=== PATIENT | male | born 1950 | race Caucasian/White ===

== ENCOUNTER → 2021-01-10 12:33 | Outpatient (CLI) | payer MEDICARE, OTHER, SELFPAY ==
[2021-01-10 11:30] VITALS: BMI 40.3
--- NOTE | 2021-01-10 12:38 | RAD_ITS ---
STUDY: X-RAY CHEST REASON FOR EXAM: Male, 70 years old. Chest pain/pressure , shortness of breath with exertion for one year TECHNIQUE: PA and lateral views of the chest. COMPARISON: None. FINDINGS: The lungs are clear and expanded. There is no demonstrated pleural abnormality. Normal size heart. Normal mediastinum and radha. Normal visualized pulmonary arteries. Normal visualized aortic arch and descending thoracic aorta. Normal visualized thoracic spine. Normal visualized ribs, clavicles, and shoulders. There is no demonstrated abnormality of the visualized soft tissue structures of the upper abdomen. RAD/Chest PA and Lateral IMPRESSION: Normal x-ray examination of the chest. Electronically Signed: Dank Kaiser MD at 12:58 EDT , Service support ,
[2021-01-10 13:38] LABS: Hematocrit 46.8 % (40-54); Mean Corp Hgb Conc 34.2 g/dL (32-36); Mean Corpuscular Volume 87.8 fL (80-94); Mean Platelet Vol. 8.8 fl (6.2-12.0); Platelet Count 320 K/mm3 (150-450); RBC Distribution Width CV 12.5 % (11.6-14.6); Red Blood Count 5.33 M/mm3 (4.6-6.2); White Blood Count 8.1 K/mm3 (4.4-11.0)
[2021-01-10 14:03] LABS: ALB/GLOB Ratio 1.1 RATIO (0.9-2.4); AST(SGOT) 40 U/L (15-37); Alanine Aminotransfer ALT/SGPT 38 U/L (16-61); Albumin, Serum 4.2 g/dL (3.2-5.0); Alkaline Phosphatase 104 U/L (45-117); Anion Gap 6 (5-15); BUN 18 mg/dL (7-18); BUN/Creat Ratio 18.4 RATIO (10-20); Calcium,Total 9.6 mg/dL (8.5-10.1); Chloride 103 mmol/L (98-107); Creatinine, Serum 0.98 mg/dL (0.70-1.30); EST Glomerular Filtration Rate 80 mL/min (>60); Est Glom Filt Rate - Afr Amer 97 mL/min (>60); Globulin 3.9 g/dL (2.2-4.2); Glucose 115 mg/dL (74-106); Potassium 4.2 mmol/L (3.5-5.1); Protein, Total 8.1 g/dL (6.4-8.2); Sodium Level 137 mmol/L (136-145); Thyroid Stim Hormone (TSH) 5.71 uIU/mL (0.358-3.74)
== END ==
LOC: RAD 12:36 → LAB 12:47
PROVIDERS: PCP Internal Medicine; Referring Provider Internal Medicine Cardiovascular Disease; Visit Provider Internal Medicine Cardiovascular Disease
DX: I10 Essential (primary) hypertension (principal); E78.5 Hyperlipidemia, unspecified; R06.00 Dyspnea, unspecified
CPT/HCPCS: 36415; 71046; 80053; 84443; 85027

== ENCOUNTER → 2021-01-22 07:04 | Outpatient (CLI) | payer MEDICARE, OTHER, SELFPAY ==
[2021-01-10 11:30] VITALS: BMI 40.3
--- NOTE | 2021-01-22 08:24 | STRESSREP ---
Stress Test Report Date: 01-22-2021 Procedure: Pharmacologic stress nuclear imaging study Indications: Shortness of breath/dyspnea on exertion; suboptimal exercise tolerance test/imaging study Consent: Per the patient Procedure: The patient underwent pharmacologic (Regadenoson 0.4mg ) evaluation with a peak heart rate of 93 beats per minute (62%predicted maximal heart rate) and a peak blood pressure of 140/78 mmHg. The baseline ECG demonstrated normal sinus rhythm; anteroseptal OK of indeterminate age cannot be excluded; nonspecific T wave abnormality. The peak pharmacologic ECG demonstrated no obvious ECG changes. There were no cardiac dysrhythmias pretest, during pharmacologic infusion, or recovery. There was no complaint of chest discomfort during pharmacologic infusion or recovery. The examination was discontinued secondary to completion of protocol. Impression: 1. Pharmacologic (Regadenoson) evaluation 2. Peak pharmacologic ECG with no obvious ECG changes. 3. There were no cardiac dysrhythmias pretest, during pharmacologic infusion, or recovery. 4. Nuclear images pending Myocardial perfusion imaging study: Technique: The patient was injected with 14.0 millicuries of technetium 99m Cardiolite and subsequently rest SPECT Cardiolite nuclear imaging was obtained in the horizontal long, vertical long, and short axis views. The patient underwent pharmacologic (Regadenoson) evaluation with a peak heart rate of 93 beats per minute (62% percent predicted maximal heart rate) and a peak blood pressure of 140/78 mmHg. The patient was injected with 45.0 millicuries of technetium 99m Cardiolite and subsequently stress SPECT Cardiolite nuclear imaging was obtained in the horizontal long, vertical long, and short axis views. A gated Cardiolite study at peak stress was obtained. Interpretation: Rest and stress SPECT Cardiolite nuclear imaging status post realignment, normalization, and attenuation correction demonstrate status post stress the appearance of diminished tracer uptake in portions of the basal inferior septal and basal inferior segments extending towards the mid inferior septal/inferior segments. There is end systolic thickening and brightening. The gated Cardiolite study demonstrates myocardial thickening and inward wall motion. The reported LVEF is 84%. Impression: 1. Rest and stress SPECT current nuclear imaging demonstrate myocardial perfusion changes concerning for an area of stress-induced myocardial ischemia in portions of the basal towards mid inferoseptal/inferior segments, however, an element of soft tissue attenuation/artifact cannot necessarily be excluded. 2. The gated Cardiolite study reports an LVEF of 84%. This note was generated with [employer]ube[employer] software. It may contain incorrect words, spelling, and punctuation that were not noted in checking the note before signing.
== END ==
PROVIDERS: PCP Internal Medicine; Referring Provider Internal Medicine Cardiovascular Disease; Visit Provider Internal Medicine Cardiovascular Disease
DX: R06.00 Dyspnea, unspecified (principal); E78.5 Hyperlipidemia, unspecified; I10 Essential (primary) hypertension
CPT/HCPCS: 78452; 93017; A9500; A4216; J2785

== ENCOUNTER 2021-02-19 08:35 | Day surgery (SDC) | payer MEDICARE, OTHER, SELFPAY ==
[2021-01-10 11:30] VITALS: BMI 40.3
[2021-02-12 11:10] VITALS: BMI 40.3
[2021-02-12 12:24] LABS: Hematocrit 46.1 % (40-54); Hemoglobin 15.8 g/dL (13.0-16.5); Mean Corp Hgb Conc 34.3 g/dL (32-36); Mean Corpuscular Volume 87.5 fL (80-94); Mean Platelet Vol. 8.7 fl (6.2-12.0); Platelet Count 285 K/mm3 (150-450); RBC Distribution Width CV 12.2 % (11.6-14.6); RBC Distribution Width SD 38.8 fl (35.1-43.9); Red Blood Count 5.27 M/mm3 (4.6-6.2); White Blood Count 7.5 K/mm3 (4.4-11.0)
[2021-02-12 12:35] LABS: Prothrombin Time (Protime)PT. 12.6 SECONDS (11.7-14.9)
[2021-02-12 13:13] LABS: Anion Gap 8 (5-15); BUN 16 mg/dL (7-18); BUN/Creat Ratio 16.8 RATIO (10-20); Calcium,Total 9.4 mg/dL (8.5-10.1); Chloride 101 mmol/L (98-107); Creatinine, Serum 0.96 mg/dL (0.70-1.30); EST Glomerular Filtration Rate 83 mL/min (>60); Est Glom Filt Rate - Afr Amer 100 mL/min (>60); Glucose 138 mg/dL (74-106); Potassium 3.8 mmol/L (3.5-5.1); Sodium Level 136 mmol/L (136-145)
[2021-02-18 10:17] VITALS: BMI 40.3
--- NOTE | 2021-02-18 17:47 | PCM.HP.BLA ---
History and Physical Date of Admission: 02/19/21 [facility] [id number] [place], [place] [id number] OFFICE VISITDate of Service: 01/10/21 MR#:[id number]:[id number]: ANISA HENSLEYRep #:[id number]:[id number] Provider:Dr. Tomás Frias MDAge/Sex: 70/M [facility] HPI History of Present Illness Details: This is a 70-year-old white male who presents for outpatient cardiovascular consultation regarding shortness of breath/dyspnea on exertion and a suboptimal stress echocardiogram. The patient notes that for some time now he has been experiencing increased shortness of breath/dyspnea on exertion. He does not experience chest discomfort other than that with the associated with the sensation of dyspnea. He denies orthopnea or PND. He denies near syncope or syncope. He had a [facility] ECG on 10-31-2020. He was sinus rhythm with the appearance of nonspecific ST and T wave abnormality according to their report. He had a repeat ECG today. He was noted to have sinus rhythm with a leftward axis with poor R wave progression with an anterior WA of indeterminate age cannot be excluded and nonspecific T wave abnormality. He did undergo [facility] evaluation in 2013 with a stress echocardiogram which was considered negative at that time. It appears he had a reattempt at a stress echocardiogram on 11-21-2020 through the [facility] system. This was considered suboptimal based upon his heart rate response only reaching 76% predicted maximal heart rate response. He states his legs were unable to keep going on the treadmill. Based upon the report it did not appear he had any obvious changes at the heart rate achieved. He is on medical therapy for hyperlipidemia. He states he takes his lipid-lowering medication 3 times per week. He is also on medical therapy for hypertension. Intake Vital Signs 01/10/21 11:30 Height 5 ft 8 in Weight: 265 lb 6 oz BMI 40.3 BP 132/80 H Blood Pressure Location Lt brachial Position Sitting Respiration 16 Pulse 68 Pulse Source Auscultation Intake Visit Reasons: GRESHAM/Ref. 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 Accompanied by: Self Allergies No Known Allergies Allergy (Unverified 01/10/21 11:31) Medications ascorbic acid (vitamin C) 500 mg tablet 500 mg PO DAILY 01/08/21 [History Confirmed 01/10/21] flaxseed oil 1,000 mg capsule 1,000 mg PO DAILY 01/08/21 [History Confirmed 01/10/21] lisinopril 10 mg-hydrochlorothiazide 12.5 mg tablet 1 tab PO DAILY #1 tab 01/08/21 [Rx Confirmed 01/10/21] rosuvastatin 5 mg tablet 5 mg PO .COMPLEX #1 tab 01/08/21 [Rx Confirmed 01/10/21] aspirin 81 mg tablet,delayed release 81 mg PO DAILY #1 tab 01/10/21 [Rx Confirmed 01/10/21] calcium carbonate-vitamin D3 600 mg calcium-200 unit capsule 1 cap PO DAILY cap 01/10/21 [History Confirmed 01/10/21] cholecalciferol (vitamin D3) 25 mcg (1,000 unit) chewable tablet 25 mcg PO DAILY PRN 01/10/21 [History Confirmed 01/10/21] cyanocobalamin (vitamin B-12) 500 mcg sublingual tablet 500 mcg SUBLINGUAL DAILY PRN 01/10/21 [History Confirmed 01/10/21] levothyroxine 100 mcg tablet 100 mcg PO DAILY 01/10/21 [History Confirmed 01/10/21] [facility] Medical History (Updated 01/10/21 @ 12:[address] Tomás Frias MD) BPH (benign prostatic hyperplasia) Controlled type 2 diabetes mellitus Dyspnea on exertion Essential hypertension HLD (hyperlipidemia) Hypothyroidism Surgical History History of hemorrhoidectomy History of mandibular surgery Family History Mother Cancer Cervical Diabetes Father CAD (coronary artery disease) History of coronary artery bypass surgery Social History Smoking Status: Never smoker alcohol intake: never substance use type: does not use caffeine: Yes Type: tea Number of servings: 4 ROS Const Const: Positive for fatigue (decreased stamina last few years); Negative for weakness, frequent falls, excessive sweating, weight gain or weight loss Eyes Eyes: Negative for transient loss of vision, blurry vision or change in vision ENT ENT: Negative for dizziness or balance problems Cardio Chest Pain: No Palpitations: No Edema: None Muscle aches with walking: None Resp Respiratory: Positive for SOB with activity (progressively increased over the years); Negative for SOB at rest GI GI: Negative vomiting or vomiting blood/hematemesis : Negative for hematuria Musc Musc: Positive for joint pain (bilat knees); Negative for muscle aches/ myalgia, muscle weakness or balance problems Skin Skin: Negative non-healing lesions or rash Neuro Neuro: Positive for lightheadedness (occasional, random in the am); Negative for dizziness, orthostatic symptoms, frequent falls, weakness or blurry vision Lauro Hematologic/Lymphatic: Negative for easy bleeding Endo Endo: Positive for fatigue (decreased stamina last few years); Negative for excessive sweating Psych Psych: Negative for anxiety or depression Allergy Allergy/Immunology: Negative for hives and Negative for rash Cardiology Exam Const Appearance: cooperative, healthy appearing, comfortable, no acute distress, well developed and well groomed Nutritional Appearance: obese Orientation: alert, awake and oriented x3 Head Head: normal to inspection, normocephalic and atraumatic Ears: hearing grossly normal bilaterally Nose: external nose normal Face and Sinus: face symmetric Eyes Eyelids: eyelids normal Conjunctivae: conjunctivae normal Pupils: PERRL EOM: EOM intact bilaterally Neck Neck: normal visual inspection and full ROM Carotids: normal carotid upstroke Chest Chest inspection: normal inspection of the chest, symmetric chest movement and normal respiratory effort Auscultation: Bilateral: Clear to Auscultation Cardio Palpation: normal PMI Rate: regular rate Rhythm: regular rhythm Heart sounds: S1 normal and S2 normal GI GI: normal to inspection, soft, bowel sounds present and obese Neuro General: patient alert, patient awake, patient oriented x3 and moves all extremities Skin Skin: no rashes or lesions noted Extremities Pulses: Normal: Right Radial Pulse and Left Radial Pulse Lower Extremity Edema: None: Bilateral Psych Psychological: normal affect Assessment and Plan Assessment and Plan (1) Dyspnea on exertion: Status: Acute Orders: Orders: 12 Lead EKG performed by [facility] Today Comprehensive Metabolic Profil Today Thyroid Stim Hormone (TSH) Today CBC-Complete Blood Cnt No Diff Today Nuclear Stress Test - Chemical Today Chest PA and Lateral Today Plan - Dr. Tomás Frias MD: The patient does have shortness of breath and dyspnea on exertion. It has progressed. He has undergone noninvasive studies thus far as noted. From a cardiac standpoint he was asked to have laboratory studies to evaluate for any obvious underlying abnormalities that would contribute to this. He was also asked to have a follow-up chest x-ray to evaluate for any obvious pulmonary abnormalities would contribute to this. Also from a cardiovascular standpoint he was given the option of further evaluation for the possibility of CAD contributing to this with a noninvasive approach with a pharmacologic stress imaging study versus an invasive approach with a diagnostic cardiac catheterization. Status post review of his course the consensus was to proceed with a noninvasive evaluation initially. Depending upon the findings he may need further cardiac or noncardiac evaluation as well. From a noncardiac standpoint this could include underlying pulmonary function studies. In the interim he will initiate medical therapy with aspirin 81 mg p.o. daily. (2) Essential hypertension: Status: Acute Orders: Orders: 12 Lead EKG performed by [facility]MS Today Comprehensive Metabolic Profil Today Thyroid Stim Hormone (TSH) Today CBC-Complete Blood Cnt No Diff Today Nuclear Stress Test - Chemical Today Chest PA and Lateral Today Plan - Dr. Tomás Frias MD: He will continue his antihypertensive therapy. (3) HLD (hyperlipidemia): Status: Acute Orders: Orders: Comprehensive Metabolic Profil Today Thyroid Stim Hormone (TSH) Today CBC-Complete Blood Cnt No Diff Today Nuclear Stress Test - Chemical Today Chest PA and Lateral Today Plan - Dr. Tomás Frias MD: He will continue his lipid-lowering therapy. He is being followed by [facility] physicians for this. Plan Details Other Medications: New: aspirin 81 mg PO DAILY 1 TAB 0RF Additional Comments: Thank you for allowing me to participate in the care of your patient. Please don't hesitate to call if any issues arise. This note was generated using a voice recognition system and there may be incorrect words, spelling or punctuation that were not noted when reviewing the office note prior to saving. Follow Up: 3 Months (PFM) COVID (Procedure Consent) Procedure Criteria Procedure Criteria: Yes Elective The surgeon/proceduralist and patient have discussed in detail the risk of exposure to and/or potential harm posed by the COVID-19 virus with having a surgery/procedure at this time versus the risk of delaying the surgery/procedure. It is not possible to know either the risk of delaying the surgery or procedure or chance of getting an infection with perfect accuracy, but a joint decision was made between the patient and the surgeon/proceduralist to proceed at this time with the scheduled surgery/procedure as indicated on the consent form. Coding Level of Care Code Off vis,new,level 5 Diagnoses Dyspnea on exertion R06.00 Essential hypertension I10 HLD (hyperlipidemia) E78.5 Coding Level of Care Code Off vis,new,level 5 Diagnoses Dyspnea on exertion R06.00 Essential hypertension I10 HLD (hyperlipidemia) E78.5 Supplemental Info Supplemental Information Labs: No Data to Display Diagnostics: Electrocardiogram Pulmonary: No Data to Display 01/10/21 1239<Electronically signed by Tomás Frias MD>Date Tomás Frias MD Cosigner Signature:Date (if applicable) CC: Dr. Derick Vallejo MD ~ Addendum: Stress Test Report Date: 01-22-2021 Procedure: Pharmacologic stress nuclear imaging study Indications: Shortness of breath/dyspnea on exertion; suboptimal exercise tolerance test/imaging study Consent: Per the patient Procedure: The patient underwent pharmacologic (Regadenoson 0.4mg ) evaluation with a peak heart rate of 93 beats per minute (62%predicted maximal heart rate) and a peak blood pressure of 140/78 mmHg. The baseline ECG demonstrated normal sinus rhythm; anteroseptal WA of indeterminate age cannot be excluded; nonspecific T wave abnormality. The peak pharmacologic ECG demonstrated no obvious ECG changes. There were no cardiac dysrhythmias pretest, during pharmacologic infusion, or recovery. There was no complaint of chest discomfort during pharmacologic infusion or recovery. The examination was discontinued secondary to completion of protocol. Impression: 1. Pharmacologic (Regadenoson) evaluation 2. Peak pharmacologic ECG with no obvious ECG changes. 3. There were no cardiac dysrhythmias pretest, during pharmacologic infusion, or recovery. 4. Nuclear images pending Myocardial perfusion imaging study: Technique: The patient was injected with 14.0 millicuries of technetium 99m Cardiolite and subsequently rest SPECT Cardiolite nuclear imaging was obtained in the horizontal long, vertical long, and short axis views. The patient underwent pharmacologic (Regadenoson) evaluation with a peak heart rate of 93 beats per minute (62% percent predicted maximal heart rate) and a peak blood pressure of 140/78 mmHg. The patient was injected with 45.0 millicuries of technetium 99m Cardiolite and subsequently stress SPECT Cardiolite nuclear imaging was obtained in the horizontal long, vertical long, and short axis views. A gated Cardiolite study at peak stress was obtained. Interpretation: Rest and stress SPECT Cardiolite nuclear imaging status post realignment, normalization, and attenuation correction demonstrate status post stress the appearance of diminished tracer uptake in portions of the basal inferior septal and basal inferior segments extending towards the mid inferior septal/inferior segments. There is end systolic thickening and brightening. The gated Cardiolite study demonstrates myocardial thickening and inward wall motion. The reported LVEF is 84%. Impression: 1. Rest and stress SPECT current nuclear imaging demonstrate myocardial perfusion changes concerning for an area of stress-induced myocardial ischemia in portions of the basal towards mid inferoseptal/inferior segments, however, an element of soft tissue attenuation/artifact cannot necessarily be excluded. 2. The gated Cardiolite study reports an LVEF of 84%. The above was discussed and reviewed with the patient. The recommendation was made to proceed with further evaluation with diagnostic cardiac catheterization. The procedure and risk were discussed with the patient. He was agreeable to this approach. The surgeon/proceduralist and patient have discussed in detail the risk of exposure to and/or potential harm posed by the COVID-19 virus with having a surgery/procedure at this time versus the risk of delaying the surgery/procedure. It is not possible to know either the risk of delaying the surgery or procedure or chance of getting an infection with perfect accuracy, but a joint decision was made between the patient and the surgeon/proceduralist to proceed at this time with the scheduled surgery/procedure as indicated on the consent form. I have re-examined the patient. There are no clinical changes since date of exam.
--- NOTE | 2021-02-19 11:06 | CL.D_ITS ---
Patient Name: ANISA HENSLEY Study Date: 02/19/2021 Performing: Tomás Frias MD Ht: 68.11 inches 173 cm : 1950 Wt: 264.55 lbs 120 kg Age: 70 Gender: male BSA: 2.3 PROCEDURE(S) PERFORMED JN43-CNP/COR/LV CLINICAL PROFILE AND INDICATIONS Indications: Suspected CAD Heart Failure: None Stress/Imaging Date: 01/22/2021tress Test with SPECT MPI: Positive Intermediate Risk Angina Classification Anginal Classification w/in 2 Weeks: Anginal Equivalent Dyspnea CAD Presentations: Other: dyspnea on exertion CONCLUSIONS Elevated Left Ventricular End Diastolic Pressure Normal LV size, wall motion,and systolic function LVEF: by LV gram 60 % [place] Multivessel CAD RECOMMENDATIONS Risk factor modification Medical therapy DESCRIPTION OF PROCEDURE The patient arrived to the procedure lab. The risks and benefits of the procedure as well as a full d escription of our services here and current unavailability of surgical backup were fully explained to the patient and/or their significant other prior to the catheterization. The Timeout was completed, verifying the correct patient and procedure. The patient's procedural site was prepped and draped in the usual fashion. Local anesthetic was given subcutaneously to right radial region with Lidocaine 2% . Using a modified Seldinger technique, arterial access was obtained via the right radial artery, a 6 Fr sheath was inserted. Left Coronary Artery selective angiography was performed in multiple views u sing a 5 Fr. 4.0 [place] catheter. Right Coronary Artery selective angiography was then performed in mu ltiple views using a 5 Fr. 4.0 [place] catheter. Left Ventriculography was performed in BELTRAN projection using a 5 Fr.. LV to AO pullback pressures were then recorded.The arterial sheath was pulled and a TR Band was applied for hemostasis CORONARY ANGIOGRAPHY DOMINANCE: Co- Dominant LEFT HEART ASSESSMENT Left Ventricular Ejection Fraction: by LV Gram 60 % Normal LV wall motion Elevated Left Ventricular End Diastolic Pressure LVEDP: 20 mmHg LEFT MAIN: Angiographically normal LEFT ANTERIOR DESCENDING ARTERY: PROX LAD: Mild luminal irregularities SEPTAL: ostial: 75 % Stenosis CIRCUMFLEX ARTERY: Angiographically normal RIGHT CORONARY ARTERY: PROX RCA: Mild luminal irregularities MID RCA: Mild luminal irregularities AORTIC ROOT: Angiographically normal COMPLICATIONS No Complications PROCEDURE MEDICATIONS Versed 1 mg IV Fentanyl 50 mcg IV Oxygen: 2 L/min via nasal cannula Heparin given IA 02/19/2021 10:19:45 Verapamil 2.5mg, Ntg 100mcgs, 3000 units of Heparin given IA 02/19/2021 10:19:45 SUMMARY OF HEMODYNAMIC DATA Time AIR REST ECG 09:06:37 AO 102/61 (83) SA 10:28:06 LV 118/-7, 17 10:41:13 LV 113/-12, 20 10:41:20 LV 123/-3, 21 10:42:08 LV 122/-12, 21 10:42:16 LVp 123/-16, 14 10:42:21 AOp 117/60 (83) 10:42:26 Signed By Tomás Frias MD On 02/19/2021 11:05:30 Tomás Frias MD
== END 2021-02-19 12:50 | disposition home or self-care (01) ==
LOC: CLSP 08:37
PROVIDERS: PCP Internal Medicine; Visit Provider Internal Medicine Cardiovascular Disease
DX: I25.10 Atherosclerotic heart disease of native coronary artery without angina pectoris (principal); R94.39 Abnormal result of other cardiovascular function study; E78.5 Hyperlipidemia, unspecified; I10 Essential (primary) hypertension; R06.09 Other forms of dyspnea; N40.0 Benign prostatic hyperplasia without lower urinary tract symptoms; E03.9 Hypothyroidism, unspecified; E11.9 Type 2 diabetes mellitus without complications; R06.02 Shortness of breath; Z79.899 Other long term (current) drug therapy; Z79.02 Long term (current) use of antithrombotics/antiplatelets; Z79.82 Long term (current) use of aspirin
CPT/HCPCS: 36415; 80048; 85027; 85610; 85730; 93458; 99152; 99153; J7040; Q9967; C1769; C1894

== ENCOUNTER → 2022-03-25 | Outpatient (CLI) | payer MEDICARE, OTHER, SELFPAY ==
--- NOTE | 2022-03-25 09:34 | ECHOCS_ITS ---
Reason For Study: DYSPNEA Procedure This was a 2D Doppler, Color Flow transthoracic echocardiogram. The study was technically difficult. Contrast injection was performed. Exam performed in department. Left Ventricle Based upon the 2D echocardiographic and contrast enhanced images obtained there appears to be grossly normal left ventricular size, wall motion, and systolic function. The estimated ejection fraction is 60 %. No evidence for diastolic dysfunction. Right Ventricle Normal RV size. Normal systolic function. Atria Normal left atrium. Normal right atrium. No doppler evidence for ASD. Mitral Valve There is no mitral annular calcification. Normal mitral valve. Tricuspid Valve Normal tricuspid valve. Trivial tricuspid valve insufficiency. Right ventricular systolic pressure estimated to be 24 mmHg. Aortic Valve Trisinus/trileaflet aortic valve. Normal aortic valve. Pulmonic Valve The pulmonic valve is not well visualized. Mild (1+) pulmonic valve insufficiency. Great Vessels Normal sized aortic root. Pericardium/Pleural No pericardial effusion. MMode/2D Measurements & Calculations LVIDd: 4.0 cm IVSd: 0.95 cm Ao root diam: 3.6 cm LVIDs: 2.1 cm LVPWd: 1.5 cm RVDd: 2.8 cm FS: 47.2 % LAV(MOD-sp4): 35.8 ml LVAd ap4: 26.8 cm2 SV(MOD-sp4): 36.9 ml LVLd ap4: 8.6 cm EDV(MOD-sp4): 69.9 ml EDV(sp4-el): 71.0 ml LVAs ap4: 17.1 cm2 LVLs ap4: 7.2 cm ESV(MOD-sp4): 33.1 ml ESV(sp4-el): 34.4 ml EF(MOD-sp4): 52.7 % EF(sp4-el): 51.6 % SV(sp4-el): 36.6 ml LA A4 area: 16.6 cm2 LA dimension(2D): 3.4 cm RA A4 area: 16.7 cm2 Time Measurements MV dec time: 0.22 sec Doppler Measurements & Calculations MV E max chu: 44.7 cm/sec Lat Peak E' Chu: 8.5 cm/sec Med Peak E' Chu: 4.4 cm/sec MV A max chu: 74.8 cm/sec E/E' lat: 5.2 E/E' med: 10.1 MV E/A: 0.60 Ao V2 max: 107.2 cm/sec LV V1 max: 87.6 cm/sec MV dec slope: 205.8 cm/sec2 Ao max P.6 mmHg LV V1 max P.1 mmHg Ao V2 mean: 73.7 cm/sec LV V1 mean P.5 mmHg Ao mean P.5 mmHg LV V1 mean: 56.4 cm/sec Ao V2 VTI: 20.0 cm LV V1 VTI: 18.0 cm PA V2 max: 65.3 cm/sec TR max chu: 229.6 cm/sec TR max P.1 mmHg ECHO/Echo Complete W/ Contrast Interpretation Summary The study was technically difficult. Contrast injection was performed. Based upon the 2D echocardiographic and contrast enhanced images obtained there appears to be grossly normal left ventricular size, wall motion, and systolic function. The estimated ejection fraction is 60 %. Trivial tricuspid valve insufficiency. Mild (1+) pulmonic valve insufficiency. Right ventricular systolic pressure estimated to be 24 mmHg. No evidence for diastolic dysfunction. Ordering Physician: Ángel Bonilla Referring Physician: Ángel Bonilla Performed By: Suri Sarabia RCS
== END | disposition home or self-care (01) ==
LOC: CVS 09:34
PROVIDERS: PCP Internal Medicine; Referring Provider Nurse Practitioner Family; Visit Provider Nurse Practitioner Family
DX: R06.02 Shortness of breath (principal)
CPT/HCPCS: 93306; Q9957; A4216; C8929